=== PATIENT | male | born 1985 | race African-American/Black ===

== ENCOUNTER 2022-10-12 01:33 | Emergency (ER) | payer SELFPAY ==
[~2022-10-12] VITALS: Ht 177.8 cm; Wt 80.0 kg
[2022-10-12] MEDS ORDERED: CLINDAMYCIN 300 MG in DEXTROSE 5% WATER 50 ML IV ONE (02:00)
[2022-10-12] MEDS ORDERED: BACITRACIN ZINC OINT UDPKT TOP ONE (02:00)
[2022-10-12] MEDS ORDERED: KETOROLAC 30MG/ML VIAL IV ONE (02:00)
[2022-10-12] MEDS ORDERED: TETANUS, DIPHTHERIA, PERTUSSIS VAC/PF 0.5ML (>10YR OLD) IM ONE (02:00)
[2022-10-12] MEDS ORDERED: HYDR-4001 MT (03:16)
[2022-10-12] MEDS ORDERED: CLIN-116 MT (03:16)
[2022-10-12 03:45] VITALS: BP 127/79
== END 2022-10-12 06:19 | disposition home or self-care (01) ==
LOC: ER 01:33
DX: S41.142A Puncture wound with foreign body of left upper arm, initial encounter (principal); X95.9XXA Assault by unspecified firearm discharge, initial encounter; Y93.89 Activity, other specified; Y92.411 Interstate highway as the place of occurrence of the external cause
CPT/HCPCS: 73060; 90471; 90715; 96365; 96375; 99291; J1885; J3490; J7060; Z7610; A4565